=== PATIENT | female | born 1955 | race Two or more races ===

== ENCOUNTER 2019-05-02 12:55 | Outpatient (CLI) | payer OTHER ==
[~2019-05-02 12:55] MED LIST: KETO10TA2 PO; ORPH100T PO
== END 2019-05-02 13:03 | disposition home or self-care (01) ==
LOC: NUCLEAR 12:55
DX: M81.0 Age-related osteoporosis without current pathological fracture (principal); Z13.820 Encounter for screening for osteoporosis

== ENCOUNTER 2019-06-30 14:08 | Emergency (ER) | payer OTHER ==
[~2019-06-30] VITALS: Ht 152.4 cm; Wt 65.3 kg
[2019-06-30] MEDS ORDERED: SYNTHROID125 MCG (14:17)
[2019-06-30] MEDS ORDERED: NEURONTIN800 MG (14:18)
[2019-06-30] MEDS ORDERED: ZESTRIL2.5 MG (14:18)
== END 2019-06-30 20:14 | disposition home or self-care (01) ==
LOC: ER 14:08 → CPU-OBS 14:19 → ER 20:14
DX: R07.89 Other chest pain (principal)
CPT/HCPCS: G0378; G0379; 93005

== ENCOUNTER 2023-10-23 20:02 | Emergency (ER) | payer OTHER ==
[~2023-10-23] VITALS: Ht 152.4 cm; Wt 66.7 kg
[~2023-10-23 20:02] MED LIST changes: +NEURONTIN800 MG; +SYNTHROID125 MCG; +ZESTRIL2.5 MG
[2023-10-23] MEDS ORDERED: ATORVASTATIN CA10 MG (20:15)
[2023-10-23] MEDS ORDERED: PEPCID AC10 MG (20:15)
[2023-10-23] MEDS ORDERED: RELAFEN DS1000 MG (20:15)
[2023-10-23] MEDS ORDERED: ASPIRIN 325 MG TABLET.EC PO STA (20:28)
[2023-10-23 20:53] LABS: HEMATOCRIT 39.1 % (36.0-45.00); HEMOGLOBIN 13.2 g/dL (12.0-15.00); MEAN CELL VOLUME 89.9 fL (80.00-100.00); MEAN CORPUSCULAR HEMOGLOBIN 30.3 pg (27.00-32.0); MEAN CORPUSCULAR HGB CONC 33.7 g/dl (32.0-36.0); PLATELET COUNT 254 K/uL (150-450); RED BLOOD COUNT 4.34 M/uL (4.00-6.00); RED CELL DISTRIBUTION WIDTH 13.6 % (11.5-14.5)
[2023-10-23 21:44] LABS: CALCIUM 9.4 mg/dL (8.5-10.1); CREATININE SERUM 1.54 mg/dL (0.55-1.02); GFR 33.6; INR 0.95; POTASSIUM 3.54 mEq/L (3.5-5.1)
[2023-10-23 21:45] LABS: PARTIAL THROMBOPLASTIN TIME 30.5 SECONDS (22.0-34.0)
== END 2023-10-23 22:49 | disposition home or self-care (01) ==
LOC: ER 20:02
PROVIDERS: Emergency Medicine
DX: R07.89 Other chest pain (principal); I10 Essential (primary) hypertension; E03.9 Hypothyroidism, unspecified; Z88.0 Allergy status to penicillin; Z88.8 Allergy status to other drugs, medicaments and biological substances

== ENCOUNTER 2023-12-15 15:35 | Emergency (ER) | payer OTHER ==
[~2023-12-15] VITALS: Ht 152.4 cm; Wt 68.0 kg
[~2023-12-15 15:35] MED LIST changes: +ATORVASTATIN CA10 MG; +PEPCID AC10 MG; +RELAFEN DS1000 MG
[2023-12-15] MEDS ORDERED: BENZONATATE 100 MG CAPSULE PO ONE (17:30)
[2023-12-15] MEDS ORDERED: ACETAMINOPHEN 500 MG GEL..CAP PO ONE (17:30)
[2023-12-15] MEDS ORDERED: METHYLPREDNISOLONE SOD SUCC 125 MG VIAL IV ONE (17:30)
[2023-12-15] MEDS ORDERED: GUAIFENESIN 200 MG/10 ML BLIST.PACK PO ONE (17:30)
[2023-12-15 18:24] LABS: HEMATOCRIT 45.8 % (36.0-45.00); HEMOGLOBIN 15.6 g/dL (12.0-15.00); MEAN CORPUSCULAR HEMOGLOBIN 30.9 pg (27.00-32.0); PLATELET COUNT 271 K/uL (150-450); RED BLOOD COUNT 5.03 M/uL (4.00-6.00); RED CELL DISTRIBUTION WIDTH 15.1 % (11.5-14.5)
[2023-12-15 18:44] LABS: ABG PH 7.464 (7.35-7.45); ABG PO2 92.1 mmHg (80-100); ABG pCO2 28.8 mmHg (35-45); BASE EXCESS -2.2 mmol/l; BICARBONATE 20.1 mmol/l (23-25); SaO2 97.6 %; allen test SATISFACTORY; o2 21 %; puncture site RADIAL RIGHT
[2023-12-15 18:50] LABS: ALBUMIN 3.7 gm/dL (3.4-5.0); BILIRUBIN TOTAL 0.62 mg/dL (0.3-1.2); CALCIUM 9.6 mg/dL (8.5-10.1); CREATININE SERUM 1.11 mg/dL (0.55-1.02); GFR 49.03; GLOBULINA 4.2 G/DL (2.4-3.5); POTASSIUM 4.4 mEq/L (3.5-5.1); TOTAL PROTEIN 7.9 gm/dL (6.4-8.2)
== END 2023-12-15 20:06 | disposition home or self-care (01) ==
LOC: ER 15:35
PROVIDERS: General Practice
DX: J40 Bronchitis, not specified as acute or chronic (principal); Z20.822 Contact with and (suspected) exposure to COVID-19; Z88.0 Allergy status to penicillin; Z88.8 Allergy status to other drugs, medicaments and biological substances; Z91.041 Radiographic dye allergy status